=== PATIENT | male | born 1945 | race Caucasian/White ===

== ENCOUNTER → 2016-11-19 | Outpatient (CLI) | payer MEDICARE, BC ==
[~2016-11-19] MED LIST: ALDACTONE25 MG PO; COQ-10100 MG PO; CURCUMIN PO; FLOMAX0.4 MG PO; GLUCOPHAGE500 MG PO; GREEN TEA EXTRACT PO; PROPAFENONE HC300 MG PO; VITAMIN D1000 UNIT PO; XARELTO20 MG PO; ZOCOR40 MG PO; [UNRECOGNIZED DRUG - OTHER] PO; [UNRECOGNIZED DRUG - OTHER] PO; [UNRECOGNIZED DRUG - OTHER] PO
[2016-11-19 16:11] LABS: BASOPHIL % 0.7 %; EOSINOPHIL # 0.2 K/uL (0.0-0.5); EOSINOPHIL % 3.3 %; HEMATOCRIT 44.4 % (37.0-53.0); IMMATURE GRANULOCYTE % 0.2 %; LYMPHOCYTE # 1.9 K/uL (0.8-4.0); LYMPHOCYTE % 33.5 %; MCH 29.9 pg (27.0-34.0); MCHC 33.8 gm/dL (32.0-36.5); MCV 88.4 fl (83.0-98.0); MONOCYTE # 0.5 K/uL (0.0-1.0); MONOCYTE % 8.6 %; MPV 10.8 fl (9.4-12.4); NEUTROPHIL # (ANC) 3.1 K/uL (1.4-9.0); NEUTROPHIL % 53.7 %; NRBC % 0 /100WBC (0-0.00); PLATELET COUNT 207 K/uL (150-450); RBC 5.02 M/uL (3.50-5.50); RDW-CV 13.3 % (11.9-14.6); WBC 5.7 K/uL (4.0-11.0)
[2016-11-19 16:28] LABS: ALBUMIN 3.5 gm/dL (3.5-5.0); ALK PHOS 121 IU/L (33-138); ALT 20 IU/L (12-78); ANION GAP 12.2 (10.0-19.0); AST 16 IU/L (10-40); BLOOD UREA NITROGEN 13 mg/dL (6-24); CALCIUM 8.7 mg/dL (8.5-10.5); CHLORIDE 109 mMol/L (96-110); CO2 26 mMol/L (22-32); CREATININE 0.8 mg/dL (0.6-1.3); POTASSIUM 4.2 mMol/L (3.7-5.1); SODIUM 143 mMol/L (135-145); TOTAL BILIRUBIN 0.5 mg/dL (0.0-1.5); TOTAL PROTEIN 7.4 g/dL (6.0-8.4)
== END | disposition disaster alternative care site (69) ==
LOC: LNHI 16:05
PROVIDERS: Internal Medicine Cardiovascular Disease
DX: R06.02 Shortness of breath (principal); E11.9 Type 2 diabetes mellitus without complications